=== PATIENT | male | born 1975 | race African-American/Black ===

== ENCOUNTER 2017-11-05 22:34 | Emergency (ER) | payer BC, SELFPAY ==
[2017-11-05] MEDS ORDERED: HYDROcodone/Acetaminophen 10/325 mg Tablet ONE (23:00)
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
[2017-11-06] MEDS ORDERED: Cyclobenzaprine 10 MG TAB ONE (00:42)
[2017-11-06] MEDS ORDERED: Ibuprofen 800 MG TAB ONE (00:45)
== END 2017-11-06 00:50 | disposition home or self-care (01) ==
LOC: NAV ERS 22:34
DX: S39.012A Strain of muscle, fascia and tendon of lower back, initial encounter (principal); S29.012A Strain of muscle and tendon of back wall of thorax, initial encounter; S16.1XXA Strain of muscle, fascia and tendon at neck level, initial encounter; I10 Essential (primary) hypertension; F32.9 Major depressive disorder, single episode, unspecified; F17.210 Nicotine dependence, cigarettes, uncomplicated; V42.5XXA Car driver injured in collision with two- or three-wheeled motor vehicle in traffic accident, initial encounter
CPT/HCPCS: 71046; 72072; 72125; 72131